=== PATIENT | female | born 1990 | race Caucasian/White ===

== ENCOUNTER 2016-11-24 10:49 | Outpatient (CLI) | payer OTHER | END 2016-11-24 10:50 | disposition home or self-care (01) | DX: Z36 Encounter for antenatal screening of mother (principal) ==

== ENCOUNTER 2016-12-21 15:06 | Inpatient (IN) | payer OTHER ==
[2016-12-21] MEDS ORDERED: OXYTOCIN 10 UNIT/ML VIAL ONE (16:32)
[2016-12-21] MEDS ORDERED: LIDOCAINE 1% 50 ML MDV ONE (16:45)
[2016-12-21] MEDS ORDERED: WITCH HAZEL/GLYCERIN 1 EACH MED..PAD TOP PRN (18:22)
[2016-12-21] MEDS: IBUPROFEN 800 MG TABLET PO SCH (20:37)
[2016-12-21] MEDS: HYDROCORTISONE/PRAMOXINE 10 GM PR PRN (20:38)
[2016-12-21] MEDS: ACETAMINOPHEN 500 MG TABLET PO SCH (20:38)
[2016-12-22] MEDS: IBUPROFEN 800 MG TABLET PO SCH ×3 (02:12→13:46)
[2016-12-22] MEDS: ACETAMINOPHEN 500 MG TABLET PO SCH ×2 (07:01→16:21)
[2016-12-22] MEDS: HYDROCORTISONE/PRAMOXINE 10 GM PR PRN ×2 (13:46→18:19)
== END 2016-12-22 18:45 | disposition home or self-care (01) | DRG 775 ==
PROC: 10E0XZZ Delivery of Products of Conception, External Approach (ICD-10-PCS; principal; 2016-12-21)
DX: O80 Encounter for full-term uncomplicated delivery (principal); Z3A.40 40 weeks gestation of pregnancy; Z37.0 Single live birth

== ENCOUNTER 2017-08-22 15:04 | Emergency (ER) | payer OTHER ==
--- NOTE | 2017-08-22 15:49 | ED Physician Documentation ---
PD HPI ABD PAIN - Stated complaint Stated Complaint: RLQ PX - Chief complaint Chief Complaint: Abd Pain - History obtained from History obtained from: Patient PD PAST MEDICAL HISTORY - Allergies Allergies/Adverse Reactions: Allergies Allergy/AdvReac Type Severity Reaction Status Date / Time No Known Drug Allergies Allergy Verified 12/21/16 15:51 - Social History Smoking Status: Former smoker Results - Vitals Vitals: Vital Signs - 24 hr 08/22/17 15:17 Temperature 36.5 C Heart Rate 82 Respiratory 20 Rate Blood Pressure 111/79 O2 Saturation 97 Oxygen O2 Source Room air
[2017-08-22] MEDS ORDERED: ACETAMINOPHEN 1,000 MG/100 ML 100 ML IV STA (15:53)
--- NOTE | 2017-08-22 15:55 | ED Physician Documentation ---
PD HPI ABD PAIN - Stated complaint Stated Complaint: RLQ PX - Chief complaint Chief Complaint: Abd Pain - History obtained from History obtained from: Patient - History of Present Illness Timing - onset: Other (Previously healthy 27-year-old woman with no history of abdominal surgeries developed generalized stomachache this morning with nausea and diarrhea, but progressed to right lower quadrant pain this afternoon with pain with motion. Last normal menses was approximately 2 weeks ago. She has an IUD in place and normally has irregular menses. She is breast-feeding an 8- month-old daughter who she delivered vaginally.) Review of Systems Ten Systems: 10 systems reviewed and negative Constitutional: denies: Fever, Chills Cardiac: denies: Chest pain / pressure, Palpitations Respiratory: denies: Dyspnea, Cough, Wheezing GI: reports: Abdominal Pain, Nausea, Diarrhea. denies: Vomiting, Hematemesis, Bloody / black stool : reports: Vaginal bleeding (Spotting 2 days ago, gone), Irregular menses. denies: Dysuria, Hematuria PD PAST MEDICAL HISTORY - Past Medical History Past Medical History: No - Allergies Allergies/Adverse Reactions: Allergies Allergy/AdvReac Type Severity Reaction Status Date / Time No Known Drug Allergies Allergy Verified 12/21/16 15:51 - Living Situation Living Situation: reports: With spouse/s.o. Living Arrangement: reports: At home - Social History Smoking Status: Former smoker Does the pt have substance abuse?: No - Family History Family history: reports: Non contributory - Immunizations Immunizations are current?: Yes PD ED PE NORMAL - Vitals Vital signs reviewed: Yes - General General: Alert and oriented X 3, No acute distress, Other (Winces with motion) - HEENT HEENT: PERRL, EOMI - Neck Neck: Supple, no meningeal sign, No bony TTP - Cardiac Cardiac: RRR, No murmur - Respiratory Respiratory: No respiratory distress, Clear bilaterally - Abdomen Abdomen: Normal bowel sounds, Soft, Other (Focal tenderness in the right lower quadrant with rebound tenderness, positive Rovsing's and psoas signs.) - Back Back: No CVA TTP, No spinal TTP - Derm Derm: Normal color, Warm and dry - Extremities Extremities: No edema, No calf tenderness / cord - Neuro Neuro: Alert and oriented X 3, Normal speech - Psych Psych: Normal mood, Normal affect Results - Vitals Vitals: Vital Signs - 24 hr 08/22/17 08/22/17 15:17 16:46 Temperature 36.5 C Heart Rate 82 68 Respiratory 20 16 Rate Blood Pressure 111/79 109/64 O2 Saturation 97 99 Oxygen O2 Source Room air - Labs Labs: Laboratory Tests 08/22/17 08/22/17 08/22/17 16:07 16:07 16:46 WBC 6.6 RBC 4.50 Hgb 13.2 Hct 40.0 MCV 88.9 MCH 29.4 MCHC 33.0 RDW 12.9 Plt Count 195 MPV 7.9 Neut # 5.0 Lymph # 1.1 L [place] # 0.4 Eos # 0.0 Baso # 0.0 Absolute Nucleated RBC 0.00 Nucleated RBC % 0.0 Sodium 138 Potassium 3.9 Chloride 106 Carbon Dioxide 25 Anion Gap 7.0 BUN 12 Creatinine 0.8 Estimated GFR (MDRD) 85 L Glucose 117 H Calcium 8.9 Total Bilirubin 0.3 AST 18 ALT 17 Alkaline Phosphatase 73 Total Protein 7.0 Albumin 4.3 Globulin 2.7 Albumin/Globulin Ratio 1.6 Lipase 24 Urine Color YELLOW Urine Clarity CLEAR Urine pH 7.0 Ur Specific [place] 1.010 Urine Protein NEGATIVE Urine Glucose (UA) NEGATIVE Urine Ketones NEGATIVE Urine Occult Blood NEGATIVE Urine Nitrite NEGATIVE Urine Bilirubin NEGATIVE Urine Urobilinogen 0.2 (NORMAL) Ur Leukocyte Esterase NEGATIVE Ur Microscopic Review NOT INDICATED Urine Culture Comments NOT INDICATED Urine HCG, Qual NEGATIVE - Rads (name of study) CT A/P Radiology: EMP read contemporaneously (Normal, appendix is normal.) PD MEDICAL DECISION MAKING - ED course ED course: 27-year-old woman with less than a days worth of pain which is concerning for appendicitis which is not evident on CT her labs. She was nontender on recheck after ofirmev, She only wanted medications that were safe in breast-feeding. She did have some spotting the other day so she may be having some mittelschmerz. Departure - Departure Disposition: 01 Home, Self Care Clinical Impression: Abdominal pain Qualifiers: Abdominal location: right lower quadrant Qualified Code(s): R10.31 - Right lower quadrant pain Condition: Good Record reviewed to determine appropriate education?: Yes Instructions: ED Abdominal Pain Unkn Cause Comments: Ibuprofen as needed for pain. Follow-up with your doctor and return if worse.
[2017-08-22 16:20] LABS: BASOPHILS % (AUTO) 0.5 %; EOSINOPHILS % (AUTO) 0.7 %; HGB - HEMOGLOBIN 13.2 g/dL (12.0-16.0); LYMPHOCYTES # (AUTO) 1.1 10^3/uL (1.5-3.5); LYMPHOCYTES % (AUTO) 16.2 %; MEAN CORPUSCULAR HEMOGLOBIN 29.4 pg (27.0-31.0); MEAN CORPUSCULAR VOLUME 88.9 fL (81.0-99.0); MEAN PLATELET VOLUME 7.9 fL (7.9-10.8); MONOCYTES # (AUTO) 0.4 10^3/uL (0.0-1.0); MONOCYTES % (AUTO) 5.6 %; RED CELL DISTRIBUTION WIDTH 12.9 % (12.0-15.0); UNCORRECTED WHITE BLOOD COUNT 6.6 x10^3/uL; WHITE BLOOD COUNT 6.6 x10^3/uL (4.8-10.8)
[2017-08-22 16:38] LABS: ALBUMIN/GLOBULIN RATIO 1.6 (1.0-2.2); BILIRUBIN,TOTAL 0.3 mg/dL (0.2-1.0); CALCIUM 8.9 mg/dL (8.5-10.3); CREATININE 0.8 mg/dL (0.4-1.0); POTASSIUM 3.9 mmol/L (3.5-5.0)
[2017-08-22] MEDS ORDERED: ACETAMINOPHEN 1,000 MG/100 ML 100 ML IV ONE (16:39)
[2017-08-22 16:47] VITALS: BP 109/64
[2017-08-22] MEDS ORDERED: IOPAMIDOL-300 100 ML VIAL ONE (16:49)
[2017-08-22 16:50] LABS: BILIRUBIN,URINE NEGATIVE (NEGATIVE)
[2017-08-22 16:51] LABS: UA CHARGE (STRIP ONLY) YES; UR CULTURE IF IND NOT INDICATED
[2017-08-22 16:52] LABS: HCG UR QUAL NEGATIVE
[2017-08-22] MEDS ORDERED: IOPAMIDOL-300 100 ML VIAL IVP ONE (17:19)
--- NOTE | 2017-08-22 17:42 | CT Preliminary Report ---
Exam: CT ABDOMEN/PELVIS W/ IMPRESSION: 1. Normal appendix. 2. No other CT abnormality to explain clinical symptoms. [facility] SITE ID: [id number]
--- NOTE | 2017-08-22 17:45 | CT Report ---
EXAM: CT ABDOMEN AND PELVIS EXAM DATE: 08/22/2017 05:25 PM. CLINICAL HISTORY: IV only, RLQ pain. COMPARISONS: None. TECHNIQUE: Routine helical CT imaging was performed through the abdomen and pelvis. IV contrast: 100 ML ISOVUE 300. Enteric contrast: No. Reconstructions: Coronal and sagittal. In accordance with CT protocol optimization, one or more of the following dose reduction techniques w ere utilized for this exam: automated exposure control, adjustment of mA and/or KV based on patient s ize, or use of iterative reconstructive technique. FINDINGS: Lung Bases: Unremarkable. Liver: There are several small round and ovoid low density lesions in the right lobe of the liver. Th e lesions are too small to definitively characterize. The largest lesion measures 7 mm in diameter. Gallbladder/Bile Ducts: Unremarkable. Spleen: Normal. Pancreas: Normal. Adrenal Glands: Normal. Kidneys: Normal. No masses or hydronephrosis. Peritoneal Cavity/Bowel: Normal. No free fluid, free air or adenopathy. No masses or acute inflammato ry process. The appendix is well visualized and normal. Pelvic Organs: There is an IUD located centrally in the uterus. The ovaries appear normal in size. Ur inary bladder is unremarkable. Vasculature: No aneurysms or other significant abnormality. Bones: No significant abnormality. Other: None. IMPRESSION: 1. Normal appendix. 2. No other CT abnormality to explain clinical symptoms. [facility] Referring Provider Line: [phone] SITE ID: [id number]
[2017-08-22] MEDS ORDERED: KETOROLAC 60 MG/2 ML VIAL IVP STA (17:56)
[2017-08-22] MEDS ORDERED: KETOROLAC 30 MG/ML VIAL ONE (18:14)
== END 2017-08-22 18:22 | disposition home or self-care (01) ==
LOC: EDUNIT# → ED 15:04
DX: R10.31 Right lower quadrant pain (principal); Z87.891 Personal history of nicotine dependence
CPT/HCPCS: 36415; 74177; 80053; 81003; 81025; 83690; 85025; 96365; 96375; 99283; 99284; J0131; Q9967; 81001; 87086

== ENCOUNTER 2019-10-02 13:35 | Emergency (ER) | payer OTHER ==
[2019-10-02 13:47] VITALS: BP 137/72
--- NOTE | 2019-10-02 14:02 | ED Physician Documentation ---
PD HPI BACK INJURY - Stated complaint Stated Complaint: BACK PX - History obtained from History obtained from: Patient (For about 3 weeks after a pylometric workout she has had right low back pain that is worse with bending and twisting. It radiates into the right hip but no further. No weakness, numbness, tingling, saddle anesthesia, incontinence, fevers, or possibility of . She has been taking anti-inflammatories and muscle relaxers without relief. She has an appointment for osteopathic manipulation in a couple of weeks.) Review of Systems Constitutional: denies: Fever, Chills Nose: denies: Rhinorrhea / runny nose, Congestion Cardiac: denies: Chest pain / pressure, Palpitations PD PAST MEDICAL HISTORY - Past Medical History Past Medical History: No Cardiovascular: None Respiratory: None Neuro: None Endocrine/Autoimmune: None GI: None COMMUNICABLE DISEASE SPECIALIST: None : None HEENT: None Psych: None Musculoskeletal: None Derm: None - Past Surgical History Past Surgical History: No - Present Medications Home Medications: Ambulatory Orders Medication Instructions Recorded Confirmed Hydrocodone/Acetaminophen 1 - 2 each PO Q6H PRN #14 tablet 10/02/19 [Hydrocodon-Acetaminophen 5-325] - Allergies Allergies/Adverse Reactions: Allergies Allergy/AdvReac Type Severity Reaction Status Date / Time No Known Drug Allergies Allergy Verified 10/02/19 13:43 - Social History Does the pt smoke?: No Smoking Status: Never smoker Does the pt drink ETOH?: Yes Does the pt have substance abuse?: No - Immunizations Immunizations are current?: Yes - POLST Patient has POLST: No PD ED PE NORMAL - General General: Alert and oriented X 3, No acute distress (But winces with motion) - Abdomen Abdomen: Soft, Non tender - Back Back: No spinal TTP, Other (The patient has equal and normal Achilles and patellar reflexes bilaterally. Normal sensation in all areas of the legs. Patient denies saddle anesthesia. Normal strength in flexion-extension at the ankles, knees, and flexion of the hips.) - Neuro Neuro: Alert and oriented X 3, Normal speech Results - Vitals Vitals: Vital Signs - 24 hr 10/02/19 13:43 Temperature 36.9 C Heart Rate 79 Respiratory 18 Rate Blood Pressure 137/72 H O2 Saturation 99 Oxygen O2 Source Room air PD MEDICAL DECISION MAKING - ED course ED course: This patient has seemingly uncomplicated musculoskeletal back pain. The patient has no "red flags." Specifically denies IV drug use, fevers, incontinence, saddle anesthesia. Spinal epidural abscess was considered, given that the patient has no fever, is not diabetic, has no spinal tenderness, does not use IV drugs, and has no bilateral neurologic symptoms, the diagnosis of spinal epidural abscess is considered exceedingly unlikely. Departure - Departure Disposition: 01 Home, Self Care Clinical Impression: Back pain Qualifiers: Back pain location: low back pain Chronicity: acute Back pain laterality: right Sciatica presence: without sciatica Qualified Code(s): M54.5 - Low back pain Instructions: ED Low Back Pain Injury Prescriptions: Hydrocodone/Acetaminophen [Hydrocodon-Acetaminophen 5-325] 1 - 2 each PO Q6H PRN #14 tablet PRN Reason: pain Comments: In addition to the hydrocodone I am giving you a prescription for physical therapy. Follow-up with your doctor, next available appointment. Return for new or worsening symptoms. Do not drink or drive while taking narcotic pain medication. Note that many narcotic pain relievers also contain Tylenol/acetaminophen. Please ensure that your total dose of acetaminophen from all sources does not exceed 3 g (3000 mg) per day. You may get constipated while on this medication. Take a stool softener such as Colace twice a day while you are on it. Also add an [id number]-oqk-egaywfh laxative such as senna or MiraLAX on any day that you do not have a bowel movement. If you received a narcotic pain medication or sedative while in the emergency department, do not drive for the next 24 hours. Discharge Date/Time: 10/02/19 14:26
== END 2019-10-02 14:26 | disposition home or self-care (01) ==
LOC: ED 13:35
DX: M54.5 Low back pain (principal)
CPT/HCPCS: 99282; 99283

== ENCOUNTER 2019-10-04 17:20 | Outpatient (CLI) | payer OTHER ==
[2019-10-04] MEDS ORDERED: GADOBUTROL 10 MMOL/10 ML VIAL ONE (17:58)
[2019-10-04] MEDS ORDERED: GADOBUTROL 10 MMOL/10 ML VIAL IVP ONE (19:25)
--- NOTE | 2019-10-05 06:07 | MRI Report ---
Reason: LOW BACK PAIN Procedure Date: 10/04/2019 Accession Number: [id number] / [id number] Procedure: MRI - Lumbar Spine W/WO CPT Code: Final Report FULL RESULT: EXAM: MRI LUMBAR SPINE WITHOUT AND WITH CONTRAST EXAM DATE: 10/04/2019 07:24 PM. CLINICAL HISTORY: LOW BACK PAIN. COMPARISONS: None. TECHNIQUE: Multiplanar, multisequence T1-weighted and fluid-sensitive sequences of the lumbar spine from T12 to S1 before and after administration of intravenous contrast. Other: None. IV contrast: 10 cc Gadavist. FINDINGS: Neurologic Structures: The conus terminates at L1-L2. The conus medullaris and cauda equina are unremarkable. Alignment: No scoliosis or spondylolisthesis. Bone Marrow: Five [id number] lumbar vertebral bodies are assumed. No gross fractures or bone lesions. No bone marrow replacement or abnormal enhancement. Disk Levels/Facets: T12-L1: Unremarkable. L1-L2: Unremarkable. L2-L3: Unremarkable. L3-L4: Unremarkable. L4-L5: Unremarkable. L5-S1: Mild disk space narrowing. Loss of T2 signal within the disk space. Central disk herniation measures 5 mm AP. Mild compressive effect on the thecal sac at the midline, no impingement on the S1 roots identified. Foramina appear patent. Spinal Canal: No enhancing masses within the spinal canal. No epidural abscess. Partially imaged is a perineural cyst in the sacral canal causing mild expansion. This is seen opposite S3 and measures at least 2.5 cm in diameter. Entire extent not imaged. Musculature: Normal. No edema, abnormal enhancement, or fatty atrophy. Other: The visualized retroperitoneum is unremarkable. IMPRESSION: 1. Central disk herniation at L5-S1 measures 5 mm AP. Mild indentation of the thecal sac at the midline, S1 roots appear unaffected. 2. Other disk spaces are unremarkable. No abnormal enhancement. 3. Probable perineural cyst in the sacrum at S3, these are often of no clinical significance. Comment: The following findings are so common in adults without low back pain that while we report their presence, they must be interpreted with caution and in the context of the clinical situation. (Reference Beckyk et al, Spine 2001) Prevalence of findings in patients without low back pain: Disk degeneration (any evidence): 92% Disk desiccation/T2 signal loss: 83% Disk height loss: 56% Disk bulge: 64% Disk protrusion: 32% Annular tear/high intensity zone: 38% [facility]
== END 2019-10-04 17:21 | disposition home or self-care (01) ==
LOC: DI 17:20
PROVIDERS: ATTEND Family Medicine
DX: M51.27 Other intervertebral disc displacement, lumbosacral region (principal)
CPT/HCPCS: 72158; A9585